=== PATIENT | male | born 1995 | race Caucasian/White ===

== ENCOUNTER 2017-11-14 20:47 | Inpatient (IN) ==
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
[2017-11-14 22:26] LABS: Baso # (Auto) 0.1 th/mm3 (0.0-0.2); Baso % (Auto) 1.4 % (0.0-2.0); Eos # (Auto) 0.7 th/mm3 (0.0-0.4); Hematocrit 46.4 % (39.0-51.0); Hemoglobin 15.9 gm/dL (13.0-17.0); Lymph # (Auto) 1.8 th/mm3 (1.0-4.8); Lymph % (Auto) 21.6 % (9.0-44.0); Mean Corpuscular HGB Conc 34.2 % (32.0-36.0); Mean Corpuscular Hemoglobin 30.7 pg (27.0-34.0); Mean Corpuscular Volume 89.8 fL (80.0-100.0); Mean Platelet Volume 7.6 fL (7.0-11.0); Mono # (Auto) 0.5 th/mm3 (0.0-0.9); Mono % (Auto) 6.3 % (0.0-8.0); Neut # (Auto) 5.2 th/mm3 (1.8-7.7); Neut % (Auto) 62.7 % (16.0-70.0); Platelet Count 267 th/mm3 (150-450); Red Blood Count 5.17 mil/mm3 (4.50-5.90); Red Cell Distribution Width 13.4 % (11.6-17.2); White Blood Count 8.3 th/mm3 (4.0-11.0)
[2017-11-14 22:57] LABS: Albumin 4.3 g/dL (3.4-5.0); Anion Gap 11 meq/L (5-15); Blood Urea Nitrogen 4 mg/dL (7-18); Calcium 9.6 mg/dL (8.5-10.1); Carbon Dioxide 25.1 meq/L (21.0-32.0); Chloride 105 meq/L (98-107); Glomerular Filtration Rate Greater Than 89 mL/min (>89); Glucose,Random 85 mg/dL (74-106); Potassium 3.3 meq/L (3.5-5.1); Sodium 141 meq/L (136-145)
[2017-11-14 22:59] LABS: Alanine Aminotransferase 40 U/L (12-78); Aspartate Aminotransferase 34 U/L (15-37)
[2017-11-14 23:08] LABS: Alkaline Phosphatase 94 U/L (45-117); Total Protein 7.6 g/dL (6.4-8.2)
[2017-11-15] MEDS ORDERED: OLANZapine 10 MG Tablet PO ONE (13:34)
[2017-11-15 14:43] LABS: Amphetamine Screen,Urine Pos (Neg); Barbiturate Screen,Urine Neg (Neg); Cannabinoid Screen,Urine Neg (Neg); Cocaine Screen,Urine Neg (Neg)
[2017-11-15 14:58] LABS: Opiate Screen,Urine Neg (Neg)
[2017-11-15] MEDS ORDERED: Aluminum/Magnesium/Simethacone Susp 30 ML UDC PO PRN (15:44)
[2017-11-15] MEDS ORDERED: Bisacodyl 10 MG Supp RECTAL PRN (15:44)
[2017-11-15] MEDS ORDERED: Haloperidol Inj 5 MG/ML Ampul IM STA (15:46)
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
[2017-11-15] MEDS ORDERED: Haloperidol 5 MG Tablet PO ONE (20:45)
[2017-11-15] MEDS: Haloperidol 5 MG Tablet PO SCH (20:46)
[2017-11-15] MEDS ORDERED: Senna/Docusate Sodium 8.6/50 MG Tablet PO SCH (21:00)
[2017-11-16] MEDS: Haloperidol 5 MG Tablet PO SCH ×4 (09:00→20:48)
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
[2017-11-17] MEDS: Haloperidol 5 MG Tablet PO SCH (09:25)
--- NOTE | 2017-11-17 12:38 | P.PNPSY ---
Subjective Remarks: Patient seen for follow-up, chart reviewed. Discussion nursing staff reported the patient sleeping most of the morning missed breakfast, took Haldol yesterday. Patient was found lying in bed asleep was able to wake up for interview noted be superficially cooperative today. Patient states that he is feeling "okay" stating that he had showered yesterday, denying any perceptional services but noted to be's with continued paranoia but less intense today. Patient also reports having felt "locked jaw" with the Haldol requesting to be switched to risperidone which she had taken and tolerated better in the past. Review of Systems All other systems reviewed negative except as stated in HPI Mental Status Examination Appearance: Dirty, Disheveled Consciousness: Alert Orientation: Person, Place, Date/Time Speech: Pressured Language: Adequate Fund of Knowledge: Adequate Memory: Unremarkable Mood: Anxious Affect: Labile Thought Process & Associations: Loose associations, Disorganized Thought Content: Bizarre thinking, Delusional Hallucination Type: None Delusion Type: Paranoid, Other (Persecutory) Suicidal Ideation: No Suicidal Plan: No Suicidal Intention: No Homicidal Ideation: No Homicidal Plan: No Homicidal Intention: No Insight: Poor Judgment: Poor Assessment and Plan - Assessment (1) Unspecified psychosis Code(s): F29 - Unspecified psychosis not due to a substance or known physiological condition Status: Acute - Plan Plan: Patient continues with paranoia, disorganized at times but less intense today. We will discontinue Haldol and start risperidone 1 mg p.o. twice daily for psychosis. We will continue to monitor mood and behavior. Discharge planning a progress. Justification for Continued Inpatient Stay: At risk of further decompensation a lower level of care.
--- NOTE | 2017-11-18 14:15 | P.PNPSY ---
Subjective Remarks: Patient was seen and case discussed with nursing. Patient is pleasant and cooperative with exam. He is quite disheveled and laughing throughout the interview. Minimizes his symptoms upon admission. Patient says he is no longer believes that he is being haunted or persecuted. Mental Status Examination Appearance: Dirty, Disheveled Consciousness: Alert Orientation: Person, Place, Date/Time Speech: Pressured Language: Adequate Fund of Knowledge: Adequate Memory: Unremarkable Mood: Appropriate Affect: Labile Thought Process & Associations: Loose associations, Disorganized Thought Content: Bizarre thinking, Delusional (Likely responding to internal stimuli) Hallucination Type: None Delusion Type: Paranoid, Other (Persecutory) Suicidal Ideation: No Suicidal Plan: No Suicidal Intention: No Homicidal Ideation: No Homicidal Plan: No Homicidal Intention: No Insight: Poor Judgment: Poor Assessment and Plan - Assessment (1) Unspecified psychosis Code(s): F29 - Unspecified psychosis not due to a substance or known physiological condition Status: Acute - Plan Plan: Continue current treatment plan Justification for Continued Inpatient Stay: Patient would decompensate in a less restrictive setting
[2017-11-18] MEDS: Ibuprofen 600 MG Tablet PO PRN (20:34)
[2017-11-19] MEDS: Ibuprofen 600 MG Tablet PO PRN ×2 (14:11→21:26)
--- NOTE | 2017-11-19 15:46 | P.PNPSY ---
Subjective Remarks: Patient was seen and case discussed with nursing. Patient today is claiming that all of his delusions have resolved. Patient claims that it is all due to his insomnia over a period of 3 days. He denies any paranoia or auditory or visual hallucinations today. Perseverative on discharge. Social on the unit and compliant with medications. Insight is poor Mental Status Examination Appearance: Dirty, Disheveled Consciousness: Alert Orientation: Person, Place, Date/Time Speech: Pressured Language: Adequate Fund of Knowledge: Adequate Memory: Unremarkable Mood: Appropriate Affect: Labile Thought Process & Associations: Disorganized Thought Content: Appropriate Hallucination Type: None Delusion Type: None Suicidal Ideation: No Suicidal Plan: No Suicidal Intention: No Homicidal Ideation: No Homicidal Plan: No Homicidal Intention: No Insight: Poor Judgment: Poor Assessment and Plan - Assessment (1) Unspecified psychosis Code(s): F29 - Unspecified psychosis not due to a substance or known physiological condition Status: Acute - Plan Plan: Continue current treatment plan Justification for Continued Inpatient Stay: Patient would decompensate in a less restrictive setting
[2017-11-20] MEDS: Ibuprofen 600 MG Tablet PO PRN (09:15)
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
== END 2017-11-20 12:45 | disposition home or self-care (01) ==
LOC: NEDAMB 20:47 → NEPJ 11-15 16:44 → H270 11-15 17:26
PROVIDERS: ADMIT Student in an Organized Health Care Education/Training Program; ATTEND Student in an Organized Health Care Education/Training Program